=== PATIENT | male | born 1955 | race Caucasian/White ===

== ENCOUNTER 2017-11-11 19:50 | Emergency (ER) | payer BC ==
--- NOTE | 2017-11-11 20:07 | EDPHY ---
H & P Time Seen by Provider: 11/11/17 19:55 HPI/ROS: 62 yo M presents c/o cloudy urine, general achiness, and poor appetite similar to how he has felt in the past when he has had urine infections. He had a bladder resection for chronic interstitial cystitis and has a left ureteral stent that gets replaced every few weeks at the [facility]. He is on his way back to [place] tomorrow. Review of systems as per hpi General no fever no chills no weakness HEENT no eye pain no eye discharge. No eye redness, no sore throat Respiratory no cough, no shortness of breath Cardiac no chest pain, no peripheral edema GI no abdominal pain, no diarrhea, no constipation, no nausea, no vomiting no flank pain, no hematuria, no dysuria Musculoskeletal pos myalgias, no joint pain Heme no easy bruising, no easy bleeding Endo no polyuria, no polydipsia Skin no rashes, no pruritus Neuro no syncope, no dizziness, no headaches Psych no suicidal ideation, no homicidal ideation Past Medical/Surgical History: Hypertension, hyperlipidemia Bladder resection Urostomy Ureteral stent Social History: no alcohol or drug use Smoking Status: Unknown if ever smoked Physical Exam: 62 yo m alert and oriented in nad non toxic appearance, afebrile at,nc eomi, anicteric neck supple lungs cta bilat heart rrr abd obese, bs present, urostomy functioning, no eyrthema , no swelling ext no cce Constitutional: Initial Vital Signs Temperature (C) 37.2 C 11/11/17 20:04 Heart Rate 78 11/11/17 20:04 Respiratory Rate 18 11/11/17 20:04 Blood Pressure 175/92 H 11/11/17 20:04 O2 Sat (%) 93 11/11/17 20:04 O2 Delivery Mode Room Air Allergies/Adverse Reactions: sulfamethoxazole [From Bactrim] Allergy (Intermediate, Verified 11/11/17 20:03) Rash trimethoprim [From Bactrim] Allergy (Intermediate, Verified 11/11/17 20:03) Rash Home Medications: Medication Instructions Recorded Aspirin 81mg (*) 11/11/17 Cefdinir [Omnicef (*)] 300 mg PO BID 10 Days #20 cap 11/11/17 Lisinopril 11/11/17 Simvastatin 11/11/17 Medical Decision Making ED Course/Re-evaluation: Patient seen and evaluated for cloudy urine and malaise UA and urine culture sent CBC, BMP, lactic acid ordered WBC 11 lactate 1.0 BMP no acidosis UA pos WBC, bacteria, leuk est, nitrite Imp UTI given Ceftriaxone 1gm IVPB Plan dc home on Cefdinier 300 BID x 10 days Differential Diagnosis: Differential diagnosis considered but not limited to: Urinary tract infection, pyelonephritis, kidney stone, urosepsis - Data Points Laboratory Results: Laboratory Results 11/11/17 20:35 11/11/17 20:35 11/11/17 11/11/17 11/11/17 20:35 20:35 20:35 WBC 11.45 10^3/uL H 10^3/uL (3.80-9.50) RBC 4.27 10^6/uL L 10^6/uL (4.40-6.38) Hgb 13.3 g/dL L g/dL (13.7-17.5) Hct 38.4 % L % (40.0-51.0) MCV 89.9 fL fL (81.5-99.8) MCH 31.1 pg pg (27.9-34.1) MCHC 34.6 g/dL g/dL (32.4-36.7) RDW 13.9 % % (11.5-15.2) Plt Count 175 10^3/uL 10^3/uL (150-400) MPV 10.7 fL fL (8.7-11.7) Neut % (Auto) 82.0 % H % (39.3-74.2) Lymph % (Auto) 9.9 % L % (15.0-45.0) [place] % (Auto) 7.2 % % (4.5-13.0) Eos % (Auto) 0.3 % L % (0.6-7.6) Baso % (Auto) 0.3 % % (0.3-1.7) Nucleat RBC Rel Count 0.0 % % (0.0-0.2) Absolute Neuts (auto) 9.39 10^3/uL H 10^3/uL (1.70-6.50) Absolute Lymphs (auto) 1.13 10^3/uL 10^3/uL (1.00-3.00) Absolute Monos (auto) 0.83 10^3/uL H 10^3/uL (0.30-0.80) Absolute Eos (auto) 0.03 10^3/uL 10^3/uL (0.03-0.40) Absolute Basos (auto) 0.03 10^3/uL 10^3/uL (0.02-0.10) Absolute Nucleated RBC 0.00 10^3/uL 10^3/uL (0-0.01) Immature Gran % 0.3 % % (0.0-1.1) Immature Gran # 0.04 10^3/uL 10^3/uL (0.00-0.10) VBG Lactic Acid 1.0 mmol/L mmol/L (0.7-2.1) Sodium 137 mEq/L mEq/L (135-145) Potassium 3.9 mEq/L mEq/L (3.3-5.0) Chloride 102 mEq/L mEq/L (97-110) Carbon Dioxide 23 mEq/l mEq/l (22-31) Anion Gap 12 mEq/L mEq/L (8-16) BUN 17 mg/dL mg/dL (7-23) Creatinine 1.0 mg/dL mg/dL (0.7-1.3) Estimated GFR > 60 Glucose 120 mg/dL H mg/dL (70-100) Calcium 8.8 mg/dL mg/dL (8.5-10.4) Urine Color Urine Appearance Urine pH Ur Specific [place] Urine Protein Urine Ketones Urine Blood Urine Nitrate Urine Bilirubin Urine Urobilinogen Ur Leukocyte Esterase Urine RBC Urine WBC Ur Epithelial Cells Urine Bacteria Urine Mucus Urine Glucose 11/11/17 20:10 WBC RBC Hgb Hct MCV MCH MCHC RDW Plt Count MPV Neut % (Auto) Lymph % (Auto) [place] % (Auto) Eos % (Auto) Baso % (Auto) Nucleat RBC Rel Count Absolute Neuts (auto) Absolute Lymphs (auto) Absolute Monos (auto) Absolute Eos (auto) Absolute Basos (auto) Absolute Nucleated RBC Immature Gran % Immature Gran # VBG Lactic Acid Sodium Potassium Chloride Carbon Dioxide Anion Gap BUN Creatinine Estimated GFR Glucose Calcium Urine Color YELLOW Urine Appearance CLOUDY Urine pH 6.5 (5.0-7.5) Ur Specific [place] <= 1.005 (1.002-1.030) Urine Protein TRACE H (NEGATIVE) Urine Ketones NEGATIVE (NEGATIVE) Urine Blood 2+ H (NEGATIVE) Urine Nitrate POSITIVE H (NEGATIVE) Urine Bilirubin NEGATIVE (NEGATIVE) Urine Urobilinogen 0.2 EU EU (0.2-1.0) Ur Leukocyte Esterase 3+ H (NEGATIVE) Urine RBC 15-25 /hpf H /hpf (0-3) Urine WBC 50-182 /hpf H /hpf (0-3) Ur Epithelial Cells NONE SEEN /lpf /lpf (NONE-1+) Urine Bacteria 3+ /hpf H /hpf (NONE SEEN) Urine Mucus 2+ /lpf H /lpf (NONE-1+) Urine Glucose NEGATIVE (NEGATIVE) Medications Given: Ceftriaxone Sodium/Dextrose (Rocephin 1 Gm (Premix)) 50 mls @ 100 mls/hr IV EDNOW ONE PRN Reason: Protocol Stop: 11/11/17 21:40 Last Admin: 11/11/17 21:16 Dose: 50 mls Departure - Departure Disposition: Home, Routine, Self-Care Clinical Impression: Urinary tract infection Condition: Good Instructions: Urinary Tract Infection in Men (ED) Referrals: JULES HERRERA MD [Other] - As per Instructions Prescriptions: Cefdinir [Omnicef (*)] 300 mg PO BID 10 Days #20 cap
[2017-11-11 20:42] LABS: PLATELET COUNT 175 10^3/uL (150-400)
[2017-11-11 22:18] VITALS: BP 140/75
== END 2017-11-11 21:44 | disposition home or self-care (01) ==
LOC: CED 19:50
DX: N39.0 Urinary tract infection, site not specified (principal); B96.20 Unspecified Escherichia coli [E. coli] as the cause of diseases classified elsewhere; I10 Essential (primary) hypertension; Z79.82 Long term (current) use of aspirin
CPT/HCPCS: 80048-PO; 81003-PO; 81015-PO; 83605-PO; 85025-PO; 96365; J0696

== ENCOUNTER 2018-11-11 09:54 | Observation (INO) | payer BC ==
[2018-11-11] MEDS ORDERED: NS 1,000 ML IV ONE (10:16)
--- NOTE | 2018-11-11 10:21 | EDPHY ---
H & P Stated Complaint: abd/back pain x 1 day . has uretal stent sp bladder removal Time Seen by Provider: 11/11/18 10:00 HPI/ROS: CHIEF COMPLAINT: Abdominal pain, back pain, concerns regarding ureteral stent obstruction HISTORY OF PRESENT ILLNESS: This is a 63-year-old gentleman with history of interstitial cystitis which resulted in a bladder resection. Patient has a urostomy bag in place. Following the bladder resection it was noted that the left ureter had collapsed. Ureteral stent was placed. Patient has the left ureteral stent changed approximately every 9 weeks. Last night, around 3 in the morning, he developed generalized abdominal discomfort and low back pain in the midline. Since that time the pain has worsened and has spread to include the bilateral flanks. No fevers or chills although he took both Tylenol and ibuprofen last night for the abdominal pain. No nausea, patient did report vomiting when he was brushing his tongue this morning but wonders if he actually gaged himself. He is also concerned because when he changed his urostomy bag this morning, he noticed that there was no drippage of urine from the stent. REVIEW OF SYSTEMS: A comprehensive 10 system review of systems was reviewed and is otherwise negative aside from elements mentioned in the history of present illness and medical decision making. PAST MEDICAL HISTORY: Interstitial cystitis, status post bladder resection, left ureteral stent. Pre diabetes, controlled with diet. Hyperlipidemia. Diverticulosis. SOCIAL HISTORY: Here with his . They live in [facility]. Patient is returning there today. He he has his stents changed at [facility] every 9 weeks. Non smoker. VITAL SIGNS Reviewed by me. GENERAL: Well-developed, well-nourished, mildly uncomfortable secondary to pain , no respiratory distress. HEENT: Atraumatic. Eyes: No icterus, no injection. Mouth: moist mucous membranes. No erythema or lesions. Neck: supple with no adenopathy. LUNGS: Clear to auscultation bilaterally, no wheezes, rhonchi or rales. CARDIAC: Regular rate and rhythm, no rubs, murmurs or gallops. ABDOMEN: Soft, mild lower abdominal discomfort and tenderness to palpation. No guarding or rebound. Pain slightly worse on the left. Nondistended. Urostomy bag is present. It is filled with clear urine. Patient confirms that the urostomy bag is draining urine from the diverting conduit but also from the ureteral stent which goes to the left kidney. BACK: No tenderness to palpation of the CVA. EXTREMITIES: No trauma. No edema. Range of motion is normal throughout. NEURO: Alert and oriented, grossly nonfocal. SKIN: Warm and dry, no rash. PSYCHIATRIC: Normal mentation, no agitation. - Medical/Surgical History Hx Asthma: No Hx Chronic Respiratory Disease: No Hx Diabetes: No Hx Cardiac Disease: No Hx Renal Disease: No Hx Cirrhosis: No Hx Alcoholism: No Hx HIV/AIDS: No Hx Splenectomy or Spleen Trauma: No Other PMH: Urostomy-Interstital Cystitis, HTN, Appy, High Cholesterol, Septoplasty, L knee scope, L achilles surgery. - Social History Smoking Status: Unknown if ever smoked Constitutional: Initial Vital Signs Temperature (C) 36.6 C 11/11/18 10:01 Heart Rate 72 11/11/18 10:01 Respiratory Rate 18 11/11/18 10:01 Blood Pressure 158/93 H 11/11/18 10:01 O2 Sat (%) 96 11/11/18 10:01 O2 Delivery Mode Room Air Allergies/Adverse Reactions: sulfamethoxazole [From Bactrim] Allergy (Intermediate, Verified 11/11/18 17:52) Rash trimethoprim [From Bactrim] Allergy (Intermediate, Verified 11/11/18 17:52) Rash Home Medications: Medication Instructions Recorded Aspirin EC [Aspirin EC 81 mg (*)] 81 mg PO HS 11/11/17 Lisinopril [Zestril 10 mg (*)] 10 mg PO HS 11/11/17 Simvastatin 20 mg PO HS 11/11/17 levOFLOXACIN [levAQUIN (*)] 750 mg PO DAILY #5 tab 11/12/18 Medical Decision Making - Diagnostics Imaging: Discussed imaging studies w/ call center dispatcher Radiologist ED Course/Re-evaluation: 63-year-old gentleman with a somewhat complex urologic history presents with concerns that the left nephrostomy stent which drains into a urostomy bed may be obstructed. He also is concerned regarding a urinary tract infection. Urinalysis dips positive for 1+ leukocyte esterase and 2+ blood. This was sent to the [facility] for microscopic examination of culture. Creatinine is 1.1. Patient has a normal white count. CT scan reported to me as perinephric stranding of fluid around the left kidney with dilatation of the left ureter. On delayed images up to 55 min post IV contrast administration, the patient does not have a nephrogram on the left nor evidence of renal excretion of contrast on the left. Course was discussed with Urology, LINETTE Jones for Dr. Dove. Nephrostomy stent should be changed by IR. Course was discussed with Shayy Ashley who will see the patient when he arrives at the [facility]. Patient will be admitted to Dr. Poli elias for further observation and treatment as indicated. Patient was transferred to the [facility] for urgent intervention Differential Diagnosis: Differential diagnoses for the patient's symptom complex was considered including but not limited to urinary tract infection, urosepsis, obstructed ureteral stent, pyelonephritis, kidney stone. Consult/Admit Bed Type: Dr. Lafleur, [facility] surg - Data Points Microbiology Results: MICROBIOLOGY 11/11/18 10:00 Urine,Clean Catch Urine Culture - Final Gram Neg Cristobal Nonlactose Ferm. Enterococcus Faecalis Normal Urogential Microbiota Medications Given: Discontinued Medications Hydromorphone HCl (Dilaudid) 1 mg IVP EDNOW ONE Stop: 11/11/18 10:40 Last Admin: 11/11/18 10:51 Dose: 1 mg Hydromorphone HCl (Dilaudid) 1 mg IVP EDNOW ONE Stop: 11/11/18 12:34 Last Admin: 11/11/18 12:47 Dose: 1 mg Sodium Chloride (Ns) 1,000 mls @ 0 mls/hr IV ONCE ONE; Wide Open PRN Reason: Protocol Stop: 11/11/18 10:17 Last Admin: 11/11/18 10:24 Dose: 1,000 mls Ceftriaxone Sodium/Dextrose (Rocephin 1 Gm (Premix)) 50 mls @ 100 mls/hr IV EDNOW ONE PRN Reason: Protocol Stop: 11/11/18 13:13 Last Admin: 11/11/18 13:09 Dose: 50 mls Ceftriaxone Sodium/Dextrose (Rocephin 1 Gm (Premix)) 50 mls @ 100 mls/hr IV DAILY LISA PRN Reason: Protocol Stop: 12/12/18 08:59 Last Admin: 11/12/18 09:44 Dose: 50 mls Sodium Chloride (Ns) 1,000 mls @ 75 mls/hr IV CONT LISA Stop: 05/10/19 14:29 Last Admin: 11/11/18 16:52 Dose: 1,000 mls Ondansetron HCl (Zofran) 4 mg IVP EDNOW ONE Stop: 11/11/18 10:40 Last Admin: 11/11/18 10:51 Dose: 4 mg Point of Care Test Results: CBC CBC Collection Date 11/11/18 CBC Collection Time 10:20 WBC 12.26 RBC 4.37 HGB 13.4 HCT 38.8 PLT 188 Neut # 10.28 Neut 83.9 LYMPH # 1.01 LYMPH 8.2 MCV 88.8 Chemistry 11/11/18 10:30 POC Sodium 139 mEq/L mEq/L (135-145) POC Potassium 3.8 mEq/L mEq/L (3.3-5.0) POC Chloride 106.0 mEq/L mEq/L (97-110) POC Total CO2 23 mEq/L mEq/L (22-31) POC BUN 21 mg/dL mg/dL (7-23) POC Creatinine 1.1 mg/dL mg/dL (0.7-1.3) POC Glucose 131 mg/dL H mg/dL (70-100) POC Calcium 9.2 mg/dL mg/dL (8.5-10.4) Blood Gas/Lactic Acid-Venous 11/11/18 10:33 POC Lactic Acid Zhang 1.6 mmol/L mmol/L (0.7-2.1) Urine Dip Collection Date 11/11/18 Collection Time 10:00 Specific [place] (1.002-1.030) 1.010 PH (5.0-7.5) 6.0 Leukocytes (Negative) 1+ Nitrites (Negative) Negative Protein (Negative) Trace Glucose (Negative) Negative Ketones (Negative) Negative Urobilnogen (0.2-1.0 EU) 0.2 Bilirubin (Negative) Negative Blood (Negative) 2+ Departure - Departure Disposition: [facility] Clinical Impression: obstructed left nephrostomy stent Urinary tract infection Qualifiers: Urinary tract infection type: acute pyelonephritis Qualified Code(s): N10 - Acute pyelonephritis Condition: Fair
[2018-11-11] MEDS ORDERED: HYDROmorphONE/DILAUDID 2 MG/ML INJ IVP ONE ×2 (10:39→12:33)
[2018-11-11] MEDS ORDERED: ONDANSETRON 4 MG/2 ML VIAL IVP ONE (10:39)
[2018-11-11] MEDS ORDERED: IOPAMIDOL (ISOVUE-300) 100 ML BTL ONE ×2 (11:12→15:57)
[2018-11-11] MEDS ORDERED: ACETAMINOPHEN 325 MG TAB PO PRN (14:26)
[2018-11-11] MEDS ORDERED: ONDANSETRON 4 MG/2 ML VIAL IVP PRN (14:26)
[2018-11-11] MEDS ORDERED: ONDANSETRON DISINTEGRATING 4 MG TAB PO PRN (14:26)
[2018-11-11] MEDS ORDERED: oxyCODONE IR 5 MG TAB PO PRN (14:26)
[2018-11-11] MEDS ORDERED: HYDROmorphONE/DILAUDID 1 MG/ML INJ IVP PRN (14:26)
[2018-11-11] MEDS ORDERED: NS 1,000 ML IV SCH (14:30)
--- NOTE | 2018-11-11 15:02 | PDGENHP ---
History and Physical - Chief Complaint decreased urine output, flank pain - History of Present Illness This is a 63-year-old gentleman with history of interstitial cystitis which resulted in a bladder resection. Patient has a urostomy bag in place. Following the bladder resection it was noted that the left ureter had collapsed. Ureteral stent was placed. Patient has the left ureteral stent changed approximately every 9 weeks. Last night, around 3 in the morning, he developed generalized abdominal discomfort and low back pain in the midline. Since that time the pain has worsened and has spread to include the bilateral flanks. No fevers or chills although he took both Tylenol and ibuprofen last night for the abdominal pain. No nausea, patient did report vomiting when he was brushing his tongue this morning but wonders if he actually gaged himself. He is also concerned because when he changed his urostomy bag this morning, he noticed that there was no drippage of urine from the stent. In the ER, CT abd is c/w left hydronephrosis, left hydroureter, and possible left pyelonephritis. The is obstruction to the left ureteral stent Dr. Ashley and Dr. Dove were notified. Plan is for ureteral stent replacement today PAST MEDICAL HISTORY: Interstitial cystitis, status post bladder resection, left ureteral stent. Pre diabetes, controlled with diet. Hyperlipidemia. Diverticulosis., HTN SOCIAL HISTORY: Here with his . They live in [facility]. He he has his stents changed at [facility] every 9 weeks. Non smoker. FmHx: non contributory History Information - Allergies/Home Medication List Allergies/Adverse Reactions: sulfamethoxazole [From Bactrim] Allergy (Intermediate, Verified 11/11/18 10:06) Rash trimethoprim [From Bactrim] Allergy (Intermediate, Verified 11/11/18 10:06) Rash Home Medications: Aspirin 81mg (*) 11/11/17 [Last Taken Unknown] Lisinopril 11/11/17 [Last Taken Unknown] Simvastatin 11/11/17 [Last Taken Unknown] I have personally reviewed and updated: medical history, social history - Social History Smoking Status: Unknown if ever smoked Review of Systems Review of Systems: ROS: 10pt was reviewed & negative except for what was stated in HPI & below Physical Exam Physical Exam: Temp Pulse Resp BP Pulse Ox 37.3 C 70 16 129/73 H 92 11/11/18 13:47 11/11/18 13:47 11/11/18 13:47 11/11/18 13:47 11/11/18 13:47 Constitutional: no apparent distress Eyes: PERRL, EOMI Ears, Nose, Mouth, Throat: moist mucous membranes, hearing normal Cardiovascular: regular rate and rhythym, No edema Respiratory: no respiratory distress, no rales or rhonchi, clear to auscultation Gastrointestinal: normoactive bowel sounds, soft, non-tender abdomen Skin: warm Neurologic: AAOx3 Psychiatric: interacting appropriately, not anxious, not encephalopathic Lymph, Heme, Immunologic: No petechiae Lab Data & Imaging Review POC Sodium 139 mEq/L (135-145) 11/11/18 10:30 POC Potassium 3.8 mEq/L (3.3-5.0) 11/11/18 10:30 POC Chloride 106.0 mEq/L (97-110) 11/11/18 10:30 POC Total CO2 23 mEq/L (22-31) 11/11/18 10:30 POC BUN 21 mg/dL (7-23) 11/11/18 10:30 POC Creatinine 1.1 mg/dL (0.7-1.3) 11/11/18 10:30 POC Glucose 131 mg/dL (70-100) H 11/11/18 10:30 POC Lactic Acid Zhang 1.6 mmol/L (0.7-2.1) 11/11/18 10:33 POC Calcium 9.2 mg/dL (8.5-10.4) 11/11/18 10:30 Urine RBC 3-5 /hpf (0-3) H 11/11/18 10:00 Urine WBC 15-25 /hpf (0-3) H 11/11/18 10:00 Ur Epithelial Cells NONE SEEN /lpf (NONE-1+) 11/11/18 10:00 Urine Mucus TRACE /lpf (NONE-1+) 11/11/18 10:00 Assessment & Plan Assessment: #Left Ureteral Stent Obstruction -s/p unclogging by Dr. Ashley today -He will need f/u for changing the stent in 3 weeks. He already has an appt for this #Left Hydronephrosis and Hydroureter #Left Pyelonephritis, Fever -He has fever s/p procedure. #Abp pain, flank pain #Hx of interstitial nephritis s/p bladder resection with collapsed left ureter s /p left ureteral stent #Pre DM Plan: -Rocephin, UCx, Blood Cx -IVF -Pain mgmt -Hold Aspirin -Hold Lisinopril for now, may need to restart in a.m. -SCD's -Can likely d/c tomorrow if clinically ok. I discussed with Dr. Ashley possibly discharging him today after his procedure but given the fever, will monitor overnight.
--- NOTE | 2018-11-11 19:14 | GCON ---
[f rep st] CONSULTATION DATE OF CONSULTATION: 11/11/2018 This is a 63-year-old gentleman who has had a previous cystectomy, and he has had a chronic indwellin g left ureteral stent that comes from the kidney down the ureter and out through the ileal conduit, a nd he noticed this morning that it was not draining. The stent has been changed every 9 weeks throug h the [facility], and it is a size 12-Bulgarian ureteral stent. He had a low-grade fever. He might vidal ve had 1 episode of vomiting today, but it is probably related to brushing his teeth. He was seen at 1 of the local facilities, and they contacted my service. There it was noted that he should be admi tted and either change the stent or intervene. We contacted Interventional Radiology because of the setting of having a urostomy, with the stent coming through out the stoma, and it was elected to have them do that, so he was transferred to the hospital and actually admitted to the care of the [facility] list, and Dr. Ashley was consulted, and it was discussed with her to change the device. PAST MEDICAL HISTORY: He has had cystitis and cystectomy, is prediabetic, controlled with diet, hype rlipidemia, diverticulosis, and hypertension. SOCIAL HISTORY: and he is here visiting for family. He is originally from [place], [place]. FAMILY HISTORY: Noncontributory. ALLERGIES: To sulfamethoxazole and trimethoprim. HOME MEDICATIONS: Aspirin, lisinopril, and simvastatin. PHYSICAL EXAM: GENERAL: Today, he is alert and oriented x3. He is in no distress. HEART: Appears to be regular rate and rhythm. He has unlabored breathing. ABDOMEN: Soft without pain or discomfo rt. At the present time, he is admitted for culture, antibiotics, and the stent. By the time I saw him, had been opened up by Dr. Ashley, and he will plan on being discharged probably tomorrow. He normally t akes 5 days of Cipro 500 mg b.i.d. at the time of stent change. He is considering translocating here . We would be happy to assess him and follow his medical care at that time. A total of 30 minutes was utilized in discussed with the physicians, transfer, and then arranging his Interventional Radiology procedure and discussing with him and reviewing his images. /[id number]/MODL
[2018-11-12 04:56] LABS: PLATELET COUNT 177 10^3/uL (150-400)
[2018-11-12 08:45] VITALS: BP 128/61
--- NOTE | 2018-11-12 10:20 | PDDCSUM ---
Discharge Summary Discharge Summary: Date of Admission: 11/11/2018 Date of Discharge: 11/12/2018 Consultants: IR, urology Procedures: declotting of left nephroureteral stent with wire manipulation and subsequent complete aspiration of hydronephrotic left kidney followed by flushing (Dr Shayy Ashley on 11/11/18) Discharge Diagnoses: 1. Left sided pyelonephritis 2. Left nephroureteral stent obstruction 3. H/o interstitial nephritis prompting bladder resection with ileal loop diversion (urostomy) 4. Pre-diabetes 5. Hypertension 6. Normocytic anemia Brief Hospital Course: 63yo M who lives in [place] but is visiting family here in [place] and has a history of interstitial nephritis s/p bladder resection with subsequent urostomy and chronic left nephroureteral stent (exchanged every 9 weeks at [facility]) for a collapsed left ureter presented with acute onset left flank pain. CT showed moderate-severe left hydronephrosis, lack of contrast in the left renal pelvis and collecting system, and likely superimposed pyelonephritis. IR was consulted and aspirated crystallized and "clotty" debris from the left nephroureteral stent. The stent was not exchanged because it was working appropriately and we do not have his size (he uses a 12-Slovenian, we only have 8-Slovenian). He developed a low grade temperature immediately after the procedure and was admitted for observation overnight. His creatinine was normal , he remained symptom free, afebrile, and hemodynamically stable. Culture from the stent aspiration was growing GNRs and GPCs at time of discharge. He was given a prescription to complete a 7 day course of antibiotics for pyelonephritis with instructions to get his nephroureteral stent exchanged as soon as possible. Medications: Please refer to EMR for compete list. He was given a prescription for levofloxacin 750mg daily #5. Follow Up Plan/Items for Follow Up: 1. Finalized urine and blood cultures Physical Exam: Vitals reviewed, afebrile. Alert and oriented, rrr, lungs clear, abdomen soft and nt, urostomy site c/d/i, no leg edema, no rashes, no flank pain.
--- NOTE | 2018-11-12 11:19 | ASMTLACE ---
LACE Length of stay for Answers: Less than 1 day current admission Acuity / Level of Answers: No Care: Did the patient have an inpatient admission? Comorbidities - select Answers: Other Notes: interstitial cystitis all that apply # of Emergency department Answers: 1-2 visits in the last 6 months Score: 2 Date Signed: 11/12/2018 11:19 AM Electronically Signed By:CONSUELO Gold
--- NOTE | 2018-11-12 11:23 | ASDISCHSUM ---
Discharge Information Plan Status:Home with No Needs Medically Cleared to Leave:11/12/2018 Discharge Date:11/12/2018 11:11 AM CM D/C Disposition:Home, Routine, Self-Care ADT D/C Disposition:Home, Routine, Self-Care Projected Discharge Date:11/12/2018 11:11 AM Transportation at D/C:Family Discharge Delay Reason: Follow-Up Date:11/12/2018 11:11 AM Discharge Slot: Final Diagnosis: Placement Information Patient Contact Information Contact Name:RIVER Relationship: Address:[address] [place] [address] Work Phone: City:[place] Alternate Phone: [facility]/Zip Code:[place] [address] Email: Financial Information Financial Class:[facility] Primary Plan Desc: [facility] Primary Plan Number:[id number] Secondary Plan Desc: Secondary Plan Number: Assessment Information LACE LACE Length of stay for Answers: Less than 1 day current admission Acuity / Level of Answers: No Care: Did the patient have an inpatient admission? Comorbidities - select Answers: Other Notes: interstitial cystitis all that apply # of Emergency department Answers: 1-2 visits in the last 6 months Score: 2 Date Signed: 11/12/2018 11:19 AM Electronically Signed By:CONSUELO Gold Case Management Discharge Plan Note Case Management Discharge Discharge Order Complete? Answers: Yes Patient to Obtain Answers: via Family Medications Transportation Arranged Answers: Family/Friends Discharge Comments Notes: Pt is s/p ureteral stent change today. He was medically cleared for discharge and went home with his and no CM needs. Date Signed: 11/12/2018 11:22 AM Electronically Signed By:Erin Schuster, LOCKST[employer] T[employer]NEL E[employer]IC OPERATOR Intervention Information
[2018-11-12] MEDS ORDERED: ATORVASTATIN CALCIUM 10 MG TAB PO SCH (21:00)
== END 2018-11-12 11:11 | disposition home or self-care (01) ==
LOC: CED 09:54 → F1N 12:55
PROVIDERS: ADMIT Family Medicine; ATTEND Family Medicine
DX: T83.092A Other mechanical complication of nephrostomy catheter, initial encounter (principal); T83.192A Other mechanical complication of indwelling ureteral stent, initial encounter; T83.512A Infection and inflammatory reaction due to nephrostomy catheter, initial encounter; T83.592A Infection and inflammatory reaction due to indwelling ureteral stent, initial encounter; N10 Acute pyelonephritis; B96.5 Pseudomonas (aeruginosa) (mallei) (pseudomallei) as the cause of diseases classified elsewhere; B95.2 Enterococcus as the cause of diseases classified elsewhere; B96.89 Other specified bacterial agents as the cause of diseases classified elsewhere; Z90.6 Acquired absence of other parts of urinary tract; Z93.6 Other artificial openings of urinary tract status; E86.9 Volume depletion, unspecified; R73.03 Prediabetes; E78.5 Hyperlipidemia, unspecified; I10 Essential (primary) hypertension; K57.30 Diverticulosis of large intestine without perforation or abscess without bleeding
CPT/HCPCS: 50431; 74177; 75984; 96361; 96374; 96375; 96376; 99285; C1769; G0378; 80048-ER; 83605-ER; 85025-QW-ER; J0696; J1170; J2405; Q9967